=== PATIENT | female | born 1950 | race Caucasian/White ===

== ENCOUNTER 2016-12-03 05:17 | Day surgery (SDC) | payer OTHER ==
[~2016-12-03] VITALS: Ht 165.1 cm; Wt 65.9 kg
[~2016-12-03 05:17] MED LIST: ALFA1TAB4 PO; ASCO10007 PO; ATEN25 PO; AZO PO; CA/D1TAB7 PO; CeFAZolin 1 GM/DEXTROSE 50 ML IV ONE; ECHI380C PO; ESTR1 PO; FOLI1TAB15 PO; GABA-531 PO; GARL1000 PO; HYDR25TA PO; IRON18TA PO; LORazepam 2 MG/ML VIAL IVP ONE; NIAC100T3 PO; OMEP20 PO; PROV5 PO; SELE200T2 PO; VIT C PO; VITA2500 PO; VITA400T9 PO; ZINC50TA62 PO; [UNRECOGNIZED DRUG - CODE] PO; [UNRECOGNIZED DRUG - OTHER] PO; [UNRECOGNIZED DRUG - REMARK] PO
[2016-12-03] MEDS ORDERED: SODIUM CHLORIDE 0.9% 1,000 ML IV ONE ×2 (05:31→06:30)
[2016-12-03 05:47] LABS: BASOPHILS % (AUTO) 0.7 % (0.0-2.0); EOSINOPHILS % (AUTO) 1.1 % (1.0-6.0); HEMATOCRIT 40.4 % (36-46); HEMOGLOBIN 13.3 g/dL (12.0-16.0); LYMPHOCYTES # (AUTO) 3.1 K/uL (1.0-4.8); LYMPHOCYTES % (AUTO) 34.8 % (22.0-44.0); MEAN CORPUSCULAR HEMOGLOBIN 29.7 pg (26.0-34.0); MEAN CORPUSCULAR HGB CONC 32.8 G/dL (31.0-37.0); MEAN CORPUSCULAR VOLUME 91 fL (80-100); MONOCYTES # (AUTO) 0.8 K/uL (0.1-1.0); MONOCYTES % (AUTO) 9.4 % (2.0-9.0); NEUTROPHILS # (AUTO) 4.7 K/uL (1.8-7.7); PLATELET COUNT (AUTO) 259 K/uL (150-450); RED BLOOD CELL COUNT(AUTO) 4.46 MIL/uL (4.00-5.20); RED CELL DISTRIBUTION WIDTH 12.9 % (11.5-14.5); WHITE BLOOD COUNT (AUTO) 8.8 K/uL (4.5-11.0)
[2016-12-03 05:58] LABS: ALANINE AMINOTRANSFERASE 22 U/L (12-78); ALBUMIN 3.8 g/dL (3.4-5.0); ANION GAP 9 mmol/L (8-16); ASPARTATE AMINOTRANSFERASE 21 U/L (15-37); BILIRUBIN,TOTAL 0.5 mg/dL (0.1-1.0); CALCIUM, TOTAL 8.8 mg/dL (8.8-10.5); CARBON DIOXIDE 30 mmol/L (22-29); CHLORIDE 100 mmol/L (98-107); CREATININE 0.75 mg/dL (0.60-1.30); GLOMERULAR FILTR. RATE CALC > 60 mL/min (>60); POTASSIUM 3.4 mmol/L (3.5-5.1); SODIUM SERUM 139 mmol/L (136-145); UREA NITROGEN, BLOOD 7 mg/dL (7-18)
[2016-12-03 06:02] LABS: PROTHROMBIN TIME 10.3 SEC (9.4-11.6)
[2016-12-03] MEDS ORDERED: LIDOCAINE HCL/PF 1% 30 ML VIAL ONE (06:58)
[2016-12-03] MEDS ORDERED: IOVERSOL 350 MG/ML 100 ML VIAL ONE (07:13)
[2016-12-03] MEDS ORDERED: FentaNYL CITRATE-PF 100 MCG/2 ML VIAL IVP PRN (10:00)
[2016-12-03] MEDS ORDERED: MEPERIDINE-PF 25 MG/ML SYRINGE IVP PRN (10:00)
[2016-12-03] MEDS ORDERED: OXYGEN THERAPY IH SCH (10:00)
[2016-12-03] MEDS ORDERED: HYDROmorphone 2 MG/ML SYRINGE IVP PRN (10:00)
[2016-12-03] MEDS ORDERED: OxyCODONE HCL/ACETAMINOPHEN 5-325 MG TABLET PO ONE (11:00)
[2016-12-03] MEDS ORDERED: PROPOFOL 1% 20 ML VIAL IVP ONE (12:00)
[2016-12-03] MEDS ORDERED: MIDAZOLAM HCL 2 MG/2 ML VIAL IVP ONE (12:00)
[2016-12-03] MEDS ORDERED: KETAMINE HCL 50 MG/ML 10 ML VIAL IVP ONE (12:00)
[2016-12-03] MEDS ORDERED: SUCCINYLCHOLINE CHLORIDE 20 MG/ML 10 ML VIAL IVP ONE (12:00)
[2016-12-03] MEDS ORDERED: LIDOCAINE HCL/PF 2% 5 ML VIAL INJ ONE (12:00)
[2016-12-03] MEDS ORDERED: FentaNYL CITRATE-PF 100 MCG/2 ML VIAL IVP ONE (12:00)
[2016-12-03] MEDS ORDERED: OxyCODONE HCL/ACETAMINOPHEN 5-325 MG TABLET ONE (13:06)
== END 2016-12-03 13:45 | disposition home or self-care (01) ==
LOC: SDS 05:17 → EDSTATUS 07:00 → SDS 13:45
PROVIDERS: ATTEND Radiology Diagnostic Radiology
DX: C34.31 Malignant neoplasm of lower lobe, right bronchus or lung (principal); K21.9 Gastro-esophageal reflux disease without esophagitis; M48.06 Spinal stenosis, lumbar region
CPT/HCPCS: 0340T; 36415; 80053; 85025; 85610; J7030; J0330; J0690; J2250; J2704; J3010; J3490